=== PATIENT | female | born 1990 | race Caucasian/White ===

== ENCOUNTER 2018-04-29 13:56 | Outpatient (CLI) | payer OTHER, SELFPAY ==
--- NOTE | 2018-04-29 13:56 | ONE_ITS ---
DATE OF VISIT: APRIL 29, 2018 ASSESSMENT: 1. Decreased range of motion second left digit. 2. De Quervain's tenosynovitis. PLAN: Continue splinting as per recommendation of orthopedics. I would like her to return to physical therapy locally. She is having difficulty getting to physical therapy at [facility]. We do need to clarify this claim. I have reached out to the adjustor. We will likely need to file a second claim regarding the wrist. All of my documentations from November 20 when the patient was reevaluated for recurrent symptoms do involve the left wrist. We are advised that these documents should be reviewed by the person taking on the new claim. Will proceed to obtain documentation from [facility]. Follow-up here on 06/01/18 Greater than 50% of this visit was spent in planning and coordinating care. EMPLOYER: [employer] SUBJECTIVE: Ms. Esposito returns for follow-up on left wrist pain and limitation in range of motion of the left index finger. She says that she did see [facility] last week. She was advised to continue wearing a splint at work and physical therapy/occupational therapy at [facility] was prescribed. At the time of this visit those notes are not yet available. She says that she is essentially unchanged. She is relatively comfortable except when she performs activities that involve grasping with the left hand and applying pressure. Those activities would be washing dishes or brushing cheese. She says that she has not resumed any cheese brushing activities and she has been cautious to limit dishwashing activities. Currently the discomfort along the dorsum of the hand has improved. The main discomfort is radially in the wrist. There is no real discomfort in the finger but again limitations in range of motion. REVIEW OF SYSTEMS: Continues to feel generally well. No swelling, numbness, tingling or paresthesias of upper extremities. No abdominal pain, nausea, vomiting or other GI complaints. No chest pain, cough, wheeze or dyspnea. PAST MEDICAL HISTORY: 1. Gastroesophageal reflux disease MEDICATIONS: She has Ibuprofen for p.r.n. use only. ALLERGIES: Birch pollen Food allergies which are unspecified HABITS: Does not smoke. She has two alcoholic beverages per day. OBJECTIVE: She is alert, pleasant, cooperative and in no acute distress. Musculoskeletal - second left digit essentially unchanged. MCP flexion of 90 degrees. PIP limited to about 40. Hand grasps are 5/5 bilaterally. Sensory of both hands is intact. Left wrist - no erythema, edema or warmth. There is no longer any puffiness over the thenar eminence. She is nontender over the dorsum. No tenderness at the MCP or IP. She has mild tenderness at the CMC. She has full flexion and extension, full inversion and eversion. Ivan test is weakly positive today. Tinel's is negative.
== END 2018-04-29 13:57 ==
PROVIDERS: PCP Family Medicine; Visit Provider Nurse Practitioner Family
DX: M65.842 Other synovitis and tenosynovitis, left hand (principal); M65.4 Radial styloid tenosynovitis [de Quervain]; M77.01 Medial epicondylitis, right elbow; M25.532 Pain in left wrist
CPT/HCPCS: 99214

== ENCOUNTER 2018-12-03 15:27 | Outpatient (REF) | payer BC, SELFPAY ==
[2018-12-08 12:55] LABS: Chlamydia Result Negative; GC Result Negative; Specimen Description VAGINA
== END 2018-12-03 15:47 ==
LOC: NCHCN 15:27
PROVIDERS: PCP Family Medicine; Visit Provider Registered Nurse
DX: Z11.3 Encounter for screening for infections with a predominantly sexual mode of transmission (principal)
CPT/HCPCS: 87491; 87591